=== PATIENT | male | born 1995 | race African-American/Black ===

== ENCOUNTER 2017-12-17 19:25 | Emergency (ER) | payer BC ==
[~2017-12-17] VITALS: Ht 167.6 cm; Wt 68.0 kg
[2017-12-17 19:39] VITALS: BP 128/79
[2017-12-17] MEDS ORDERED: Sodium Chloride 500ML 500 ML IV ONE (19:47)
[2017-12-17] MEDS ORDERED: Solu-MEDROL 125mg Inj IVP ONE (20:00)
[2017-12-17] MEDS ORDERED: RANITIDINE HCL150 MG ORAL (20:39)
[2017-12-17] MEDS ORDERED: DIPHENHYDRAMINE25 M1 ORAL (20:39)
[2017-12-17] MEDS ORDERED: PREDNISONE20 MG ORAL (20:39)
[2017-12-17 20:52] VITALS: BP 128/79
--- NOTE | 2017-12-18 14:20 | Emergency Room Report ---
History of Present Illness General Chief Complaint: Allergic Reaction Source: Patient Present Illness HPI 21-year-old male presents ED for evaluation. Patient complaining of throat tightness. Started 3 PM today shortly after drinking a Coconut-based drink. Patient denies any known food or drug allergies. Patient states shortly after he took some Benadryl which provided some relief but then the symptoms returned. He took some more Benadryl just prior to arrival. Complaining of throat tightness. Denies any tongue swelling. Denies any shortness of breath. Denies any rash. No other aggravating or relieving factors. Denies any other associated symptoms Allergies: Coded Allergies: No Known Allergies (Unverified , 12/17/17) Patient History Past Medical History: asthma Past Surgical History: none Pertinent Family History: none Social History: Denies: smoking, alcohol use, drug use Immunizations: UTD Reviewed Nursing Documentation: PMH: Agreed, PSxH: Agreed Nursing Documentation-PMH Hx Asthma: Yes Review of Systems All Other Systems: negative except mentioned in HPI Physical Exam Vital Signs Date Time Temp Pulse Resp B/P (MAP) Pulse Ox O2 Delivery O2 Flow Rate FiO2 12/17/17 19:28 98.2 79 18 122/78 98 Room Air 98.2 Sp02 EP Interpretation: reviewed, normal General Appearance: no apparent distress, alert, GCS 15, non-toxic Head: normocephalic Eyes: bilateral eye normal inspection, bilateral eye PERRL ENT: hearing grossly normal, normal pharynx, no angioedema, normal voice Neck: full range of motion, supple/symm/no masses, other - no stridor Respiratory: chest non-tender, lungs clear, normal breath sounds, speaking full sentences Cardiovascular #1: regular rate, rhythm, no edema Gastrointestinal: normal bowel sounds, non tender, soft, non-distended, no guarding, no rebound Rectal: deferred Genitourinary: no CVA tenderness Musculoskeletal: normal inspection Neurologic: alert, oriented x3, responsive, motor strength/tone normal, sensory intact, speech normal Psychiatric: normal inspection Skin: normal inspection Lymphatic: normal inspection Medical Decision Making Diagnostic Impression: Primary Impression: Allergic reaction Qualified Codes: T78.40XA - Allergy, unspecified, initial encounter ER Course Hospital Course 21-year-old male presents to ED complaining of throat tightness after drinking coconut drink Differential diagnoses include: allergic reaction, angioedema Clinical course Patient placed on stretcher. skin care technician. After initial history and physical, I ordered Solu-Medrol, pepcid, IVFs Upon reassessment patient states he feels better. Therefore I believe patient can be safely discharged to home. i. I feel this is a highly complex case requiring extensive working including EKG/Rhythm strip, Xray/CT/US, Blood/urine lab work, repeat exams while in ED, and administration of strong opiates/narcotics for pain control, admission to hospital or close patient follow up. Diagnosis - allergic reaction Stable and discharged to home with prescriptions for Zantac, prednisone, Benadryl. Followup with PMD. Return to ED if symptoms recur or worsen Last Vital Signs Date Time Temp Pulse Resp B/P (MAP) Pulse Ox O2 Delivery O2 Flow Rate FiO2 12/17/17 20:52 98.2 88 18 128/79 98 Room Air 98.2 Status: improved Disposition: HOME, SELF-CARE Condition: Critical Scripts Ranitidine Hcl* (ZANTAC*) 150 Mg Tablet 150 MG ORAL TWICE A DAY, #30 TAB Prov: SHA REYES M.D. 12/17/17 Prednisone* (PREDNISONE*) 20 Mg Tablet 40 MG ORAL DAILY, #10 TAB Prov: SHA REYES M.D. 12/17/17 Diphenhydramine Hcl* (DIPHENHYDRAMINE HCL*) 25 Mg Capsule 25 MG ORAL Q6H Y for Itching for 5 Days, #30 CAP 0 Refills Prov: SHA REYES M.D. 12/17/17 Referrals: NOT CHOSEN STEPH/,REFERRING (PCP) Patient Instructions: Food Allergy, [id number] SHA REYES M.D. Dec 18, 2017 14:20
== END 2017-12-17 20:50 | disposition home or self-care (01) ==
LOC: EMR 19:45
DX: T78.40XA Allergy, unspecified, initial encounter (principal); J45.909 Unspecified asthma, uncomplicated; X58.XXXA Exposure to other specified factors, initial encounter
CPT/HCPCS: 96361; 96374; 96375; 99284; J2930; J7040; S0028